=== PATIENT | female | born 1965 | race Caucasian/White ===

== ENCOUNTER 2016-09-28 16:58 | Outpatient (CLI) | payer OTHER ==
--- NOTE | 2016-09-29 12:36 | XRAY Report ---
THREE VIEW LEFT ANKLE: 09/28/2016 CLINICAL INDICATION: Injury, pain. FINDINGS: AP, lateral, and oblique views of the left ankle demonstrate no evidence of fracture or di slocation. Lateral soft tissue swelling is present. No radiopaque foreign body is seen in the soft ti ssues. IMPRESSION: SOFT TISSUE SWELLING, BUT NO EVIDENCE OF ACUTE FRACTURE. JOB #: [id number] EXT JOB #:[id number]
== END 2016-09-28 16:59 | disposition home or self-care (01) ==
LOC: DI 16:58
PROVIDERS: ATTEND Podiatrist
DX: S99.912A Unspecified injury of left ankle, initial encounter (principal)

== ENCOUNTER 2019-10-09 15:55 | Outpatient (CLI) | payer OTHER | END 2019-10-09 15:56 | disposition home or self-care (01) | LOC: COV 15:55 | PROVIDERS: ATTEND Family Medicine | DX: J02.9 Acute pharyngitis, unspecified (principal); R09.81 Nasal congestion; Z20.828 Contact with and (suspected) exposure to other viral communicable diseases ==

== ENCOUNTER 2019-12-09 09:04 | Outpatient (CLI) | payer OTHER | END 2019-12-09 09:05 | disposition home or self-care (01) | LOC: COV 09:04 | PROVIDERS: ATTEND Family Medicine | DX: R53.83 Other fatigue (principal); R19.7 Diarrhea, unspecified; R09.81 Nasal congestion; Z20.828 Contact with and (suspected) exposure to other viral communicable diseases ==

== ENCOUNTER 2020-03-11 16:59 | Outpatient (CLI) | payer OTHER | END 2020-03-11 17:00 | disposition home or self-care (01) | LOC: COV 16:59 | PROVIDERS: ATTEND Family Medicine | DX: R53.83 Other fatigue (principal); R07.0 Pain in throat; R19.7 Diarrhea, unspecified; R09.81 Nasal congestion; J34.89 Other specified disorders of nose and nasal sinuses; R11.2 Nausea with vomiting, unspecified; Z20.828 Contact with and (suspected) exposure to other viral communicable diseases ==

== ENCOUNTER 2021-03-28 08:00 | Outpatient (CLI) | payer OTHER | END 2021-03-28 23:59 | LOC: LAB.S 08:00 | PROVIDERS: ATTEND Registered Nurse | DX: R30.0 Dysuria (principal) | CPT/HCPCS: 87086 ==